=== PATIENT | female | born 1980 | race Caucasian/White ===

== ENCOUNTER → 2017-12-26 | Outpatient (CLI) | payer BC | LOC: RAD 12:15 | DX: M79.662 Pain in left lower leg (principal); M79.661 Pain in right lower leg; R22.43 Localized swelling, mass and lump, lower limb, bilateral ==

== ENCOUNTER → 2023-03-28 | Outpatient (CLI) | payer BC | LOC: MAMMO 08:23 | DX: Z12.31 Encounter for screening mammogram for malignant neoplasm of breast (principal) ==

== ENCOUNTER → 2024-04-08 | Outpatient (CLI) | payer BC | LOC: MAMMO 14:52 | DX: Z12.31 Encounter for screening mammogram for malignant neoplasm of breast (principal) ==

== ENCOUNTER → 2024-08-08 | Outpatient (CLI) | payer BC | LOC: RAD 07:15 → VAS 07:15 → RAD 22:31 | DX: R60.0 Localized edema (principal) ==